=== PATIENT | male | born 1990 | race Caucasian/White ===

== ENCOUNTER 2023-10-05 16:08 | Emergency (ER) | payer SELFPAY ==
[2023-10-05 16:08] VITALS: BMI 24.5
[2023-10-05 16:14] VITALS: BP 140/83
--- NOTE | 2023-10-05 16:39 | ED.GENMED ---
History of Present Illness
General
Chief Complaint: Musculo-Skeletal Complaint
Source: patient
Exam Limitations: none
Time Seen by Provider: 10/05/23 16:22
Nursing documentation reviewed up to this point in time: agreed with
History of Present Illness
History of Present Illness:
Patient is a 32-year-old male who slammed his right thumb in a car door on Friday, 4 days ago. He continues to have pain and bruising to the area which is prompted him to come to the ER.
He reports it is bleeding intermittently.
Past History
Past History
ED Past Medical History: Other (tachycardia, cellulitis, Hep C, history of rhabdomyolysis, on methadone)
ED Past Surgical History: None
Social History
Tobacco: Smoker
Alcohol: None
Drug: None and Other (Substance abuse)
Personal: Single
Living: with family
Review of Systems
Review of Systems
Allergies reviewed?: Yes
All Other Systems: ROS reviewed and negative except as documented in HPI and ROS
Constitutional: Reports no symptoms
Musculoskeletal: Reports other (right thumb pain)
Skin: Reports no symptoms
Neurological: Reports no symptoms
Psychiatric: Reports no symptoms
Phy Exam
General Physical Exam
General Presentation: no apparent distress
General age: appears stated age
General Skin: warm and dry
General Habitus: normal
General Mental: alert
General Hydration: appears well hydrated
Neurological Exam
Neurological Exam: alert and oriented x3
Musculoskeletal Exam
Musculoskeletal Exam: other (Right upper extremity strong pulses right thumb is swollen and tender throughout distal phalanx small abrasion no active bleeding very small subungual hematoma)
Skin Exam
Skin Exam: normal color and warm/dry
Psychiatric Exam
Psychiatric Exam: normal mood/affect
Course
Orders/Labs/Results
Orders:
Orders
10/05/23 16:16
Thumb/Finger 2 View Rt [CR Finger(s)/thumb Min 2 Vw Rt] Urgent
Comment:
Reason For Exam: smashing injury to right thumb 5 days ago
Vital Signs
Initial and Last Documented VS:
Initial Vital Signs
Temp Pulse Resp BP Pulse Ox
98.8 F 54 18 140/83 96
10/05/23 16:14 10/05/23 16:14 10/05/23 16:14 10/05/23 16:14 10/05/23 16:14
Last Documented Vital Signs
Temp Pulse Resp BP Pulse Ox
98.8 F 54 18 140/83 96
10/05/23 16:14 10/05/23 16:14 10/05/23 16:14 10/05/23 16:14 10/05/23 16:14
MDM/Problems Addressed
Differential Diagnosis Includes:
Not limited to fracture, contusion abrasion
MDM/Problems Addressed:
No fracture on x-ray thumb is mildly swollen with small ecchymosis abrasion very small subdural hematoma that does not need drainage. Will DC with sling for supportive care wound care reviewed Motrin for pain.
*Radiology
Radiology exam reviewed: radiology read reviewed
*Pulse Oximetry
Patient hypoxic: no
*Critical Care Note
Total Time (30-74mins, 75-104mins- exclusive of procedures): Not Applicable
ED Attending Note
-
Portions of this chart may have been created with voice recognition software.� Occasional wrong word or��sound alike� substitutions may have occurred due to the inherent limitations of voice recognition software.
Discharge Plan
Departure
Patient Disposition: Home (Routine Discharge)
Date of Disposition: 10/05/23
Time of Disposition: 16:45
Patient with high blood pressure during this ER visit?: Yes
Covid-19: Not Applicable
Discharge Problem:
Contusion of finger, Abrasion
Instructions: Contusion (DC), Abrasions ED
Prescriptions:
No Action
metoprolol succinate 25 mg Tablet Extended Release 24 Hr
25 mg PO HS
trazodone 50 mg Tablet
100 mg PO HS PRN (Reason: sleep)
methadone 10 mg/mL Concentrate
325 mg PO DAILY
Referrals:
Olimpia Vo MD [Family Provider] -
Stand Alone Forms: Return to Work
Activity Restrictions/Additional Instructions:
WAsh affected area twice a day and apply antibiotic open to the area. May keep wound covered and then apply splint for support. You may take ibuprofen as needed for pain.
Follow-up with your family doctor as needed.
Return if any worsening of symptoms.
Interventions
Interventions:
*Risk Screen - Suicide Last Done: 10/05/23 16:37
*General Assessment Last Done: 10/05/23 16:37
*Neglect/Abuse Screening Last Done: 10/05/23 16:37
ED- Fall Risk Assessment Last Done: 10/05/23 16:37
*ED COVID-19 Vaccine History Last Done: 10/05/23 16:37
ED-Musculoskeletal Assessment Last Done: 10/05/23 16:37
Discharge Date and Time
Print Language: MALAY
== END 2023-10-05 16:53 | disposition home or self-care (01) ==
LOC: EMR 16:08
PROVIDERS: EMERGENCY PHYSICIAN Emergency Medicine; FAMILY PHYSICIAN Internal Medicine
DX: S60.011A Contusion of right thumb without damage to nail, initial encounter (principal); S60.311A Abrasion of right thumb, initial encounter; W23.0XXA Caught, crushed, jammed, or pinched between moving objects, initial encounter; F17.200 Nicotine dependence, unspecified, uncomplicated; Z86.19 Personal history of other infectious and parasitic diseases
CPT/HCPCS: 99283; 73140

== ENCOUNTER 2025-01-22 17:20 | Emergency (ER) | payer SELFPAY ==
[2025-01-22 17:23] VITALS: BP 154/93
--- NOTE | 2025-01-22 17:44 | ED.GENMED ---
History of Present Illness
General
Chief Complaint: Abdominal Symptoms
Source: patient
Exam Limitations: none
Time Seen by Provider: 01/22/25 17:37
Nursing documentation reviewed up to this point in time: agreed with
History of Present Illness
History of Present Illness:
Patient presents to ED secondary to persistent nausea and vomiting along with abdominal cramping sensation, approximately 30 minutes after taking doxycycline this afternoon. Patient states that he started taking antibiotics secondary to an abscess
inside his mouth last night. Patient took first dose last night without any difficulties. Denies previous history of similar symptoms. Denies fever or chills. Denies diarrhea. Denies recent change in diet. Denies sick contact. Patient
however, is on chronic methadone treatment.
Past History
Past History
ED Past Medical History: Other (tachycardia, cellulitis, Hep C, history of rhabdomyolysis, on methadone)
ED Past Surgical History: None
Social History
Tobacco: Smoker
Alcohol: None
Drug: None and Other (Substance abuse)
Personal: Single
Living: with family
Review of Systems
Review of Systems
Allergies reviewed?: Yes
All Other Systems: ROS reviewed and negative except as documented in HPI and ROS
Constitutional: Reports no symptoms
ABD/GI: Reports abdominal pain, nausea and vomiting
Musculoskeletal: Reports no symptoms
Skin: Reports no symptoms
Neurological: Reports no symptoms
Phy Exam
Physical Exam
Physical Exam:
Physical Exam
General: mild distress, not acutely ill. afebrile
Head: nc/at. eomi
Neck: supple. normal range of motion
Heart: s1/s2 regular rate and rhythm
Lungs: no acute respiratory distress. clear bilaterally
Abdomen: normal bowel sounds. no distention. mild diffuse tenderness to palpation
Neuro: alert and oriented. no focal neurological deficits
Skin: no rash
Psychiatric: well kept. interactive and cooperative
Extremities: no edema. no calf tenderness.
Course
Orders/Labs/Results
Orders:
Orders
01/22/25 17:43
0.9% Sodium Chloride 1000 ml [Nss] 1,000 ml IV BOLUS
Ketorolac [Toradol] 15 mg IV NOW STA
Ondansetron Injectable [Zofran] 4 mg IV NOW STA
Pantoprazole [Protonix IV] 40 mg IV NOW STA
01/22/25 17:44
Electrocardiogram (*1) Urgent
Reason for Study: QTc Monitoring
EKG- Treatment ONCE
01/22/25 18:03
Complete Blood Count/With Diff Urgent
Comprehensive Metabolic Panel Urgent
Lipase Urgent
Magnesium Urgent
Abnormal Lab Results
01/22/25
18:03
WBC 4.3 L 10^3/uL
(4.8-10.8)
RBC 4.38 L 10^6/uL
(4.70-6.10)
Hct 38.6 L %
(39.0-52.0)
Plt Count 121 L 10^3/uL
(130-400)
MPV 10.9 H fL
(7.4-10.4)
Absolute Lymphs (auto) 0.9 L 10^3/uL
(1.2-3.4)
Monocytes % 11.6 H %
(1.7-9.3)
Glucose 119 H mg/dl
(70-99)
ALT 52 H U/L
(0-50)
01/22/25 18:03
01/22/25 18:03
Vital Signs
Initial and Last Documented VS:
Initial Vital Signs
Pulse Resp BP Pulse Ox
52 16 154/93 100
01/22/25 17:23 01/22/25 17:23 01/22/25 17:23 01/22/25 17:23
Last Documented Vital Signs
Temp Pulse Resp BP Pulse Ox
97.8 F 57 16 130/83 100
01/22/25 20:41 01/22/25 20:30 01/22/25 20:30 01/22/25 20:00 01/22/25 19:23
MDM/Problems Addressed
MDM/Problems Addressed:
After treatment, patient without any further vomiting episodes and reports significant proved in symptoms. Patient resting comfortably with stable vital signs. Repeat abdominal exam: Soft and nontender. On repeat exam in his mouth, there is mild
erythema noted along his gingiva, above tooth #10, without open drainage. As such, after discussion, patient will be provided with prescription for amoxicillin, which is to be started after 24 hours, along with urgent dentist follow-up as an
outpatient.
*Pulse Oximetry
SaO2: 100
Oxygen Mode of Delivery: Room air
Patient hypoxic: no
*Critical Care Note
Total Time (30-74mins, 75-104mins- exclusive of procedures): Not Applicable
ED Attending Note
-
Portions of this chart may have been created with voice recognition software.� Occasional wrong word or��sound alike� substitutions may have occurred due to the inherent limitations of voice recognition software.
Discharge Plan
Departure
Patient Disposition: Home (Routine Discharge)
Date of Disposition: 01/22/25
Time of Disposition: 20:06
Patient with high blood pressure during this ER visit?: Yes
Condition: Good
Discharge Problem:
Nausea and vomiting, Gingivitis
Instructions: Nausea and Vomiting, Adult (DC), Gingivitis (DC)
Prescriptions:
New
ondansetron 4 mg Tablet,Disintegrating
4 mg PO TIDPRN PRN (Reason: nausea/vomiting) Qty: 12 0RF
amoxicillin 500 mg capsule
500 mg PO Q8H Qty: 21 0RF
No Action
metoprolol succinate 25 mg Tablet Extended Release 24 Hr
25 mg PO HS
trazodone 50 mg Tablet
100 mg PO HS PRN (Reason: sleep)
methadone 10 mg/mL Concentrate
325 mg PO DAILY
Activity Restrictions/Additional Instructions:
As discussed, please follow-up with your primary care physician and/or dentist for reevaluation.
Interventions
Interventions:
*Risk Screen - Suicide Last Done: 01/22/25 17:23
*General Assessment Last Done: 01/22/25 17:23
*Neglect/Abuse Screening Last Done: 01/22/25 20:42
*ED- Fall Risk Assessment Last Done: 01/22/25 19:24
*ED COVID-19 Vaccine History Last Done: 01/22/25 19:24
*ED Influenza Vaccine History Last Done: 01/22/25 19:24
*Nursing Disposition Last Done: 01/22/25 20:42
DO-Ndkvta-Kkspfndcmp Assessment Last Done: 01/22/25 19:25
Discharge Date and Time
Discharge Date/Time: 01/22/25 20:43
Print Language: [place]
[2025-01-22] MEDS: ZOFRAN 4 MG IV (18:03)
[2025-01-22] MEDS: TORADOL 15 MG IV (18:04)
[2025-01-22] MEDS: NSS 1000 IV (18:04)
[2025-01-22] MEDS: PROTONIX IV 40 MG IV (18:06)
[2025-01-22 18:10] VITALS: BMI 23.4
[2025-01-22 18:16] LABS: Hematocrit 38.6 % (39.0-52.0); Hemoglobin 13.5 g/dL (13.0-18.0); Mean Corp Hgb Conc. 35.0 g/dL (33.0-37.0); Mean Corpuscular Volume 88.1 fL (80.0-94.0); Nucleated Red Blood Cells % 0 % (-); Platelet Count 121 10^3/uL (130-400); Red Cell Dist. Width 11.9 % (11.5-14.5)
[2025-01-22 18:33] LABS: ALT (SGPT) 52 U/L (0-50); AST (SGOT) 40 U/L (17-59); Albumin 4.4 g/dl (3.5-5.0); Alkaline Phosphatase 48 U/L (38-126); Blood Urea Nitrogen 19 mg/dl (9-20); Calcium 9.3 mg/dl (8.4-10.2); Carbon Dioxide 30 mmol/L (22-30); Chloride 104 mmol/L (98-107); Estimated Creatinine Clearance 125 ml/min; Glucose 119 mg/dl (70-99); Lipase 48 U/L (23-300); Magnesium 1.7 mg/dl (1.6-2.3); Potassium 4.5 mmol/L (3.5-5.1); Sodium 139 mmol/L (135-145); Total Protein 7.2 g/dl (6.3-8.2); eGFR > 60.00
[2025-01-22 19:17] VITALS: BP 132/95
[2025-01-22 20:00] VITALS: BP 130/83
== END 2025-01-22 20:43 | disposition home or self-care (01) ==
LOC: EMR 17:20
PROVIDERS: EMERGENCY PHYSICIAN Emergency Medicine
DX: R11.2 Nausea with vomiting, unspecified (principal); K05.10 Chronic gingivitis, plaque induced; R03.0 Elevated blood-pressure reading, without diagnosis of hypertension; B19.20 Unspecified viral hepatitis C without hepatic coma; F17.200 Nicotine dependence, unspecified, uncomplicated
CPT/HCPCS: 99284; 96374; 96375 ×2; 96361; 80053; 83690; 83735; 85025; 93005